=== PATIENT | male | born 1980 | race Caucasian/White ===

== ENCOUNTER 2018-10-11 12:11 | Emergency (ER) | payer MEDICAID ==
[~2018-10-11] VITALS: Ht 165.1 cm; Wt 86.2 kg
[~2018-10-11 12:11] MED LIST: COLACE100 MG PO; FLA500 PO; KEFLEX500 MG PO; LAC PO; LEVAQUIN750 MG PO; NORCO1 TA2 PO
[2018-10-11 12:27] VITALS: Ht 165.1 cm; Wt 86.2 kg
[2018-10-11 14:51] LABS: BASOPHIL % 0.8 % (0-2); PLATELET COUNT 199 x10^3mcL (130-400); RED CELL DISTRIBUTION WIDTH 13.3 % (11.5-14.5)
[2018-10-11 15:39] VITALS: BP 129/71
== END 2018-10-11 15:39 | disposition home or self-care (01) ==
LOC: ED 12:11
PROVIDERS: Emergency Medicine
DX: K62.5 Hemorrhage of anus and rectum (principal); Z98.890 Other specified postprocedural states
CPT/HCPCS: 36415